=== PATIENT | female | born 1970 | race Two or more races ===

== ENCOUNTER 2016-10-22 09:39 | Day surgery (SDC) | payer OTHER ==
[~2016-10-22 09:39] MED LIST: CEFAZOLIN 1 G VIAL MC ONE; DEXAMETHASONE SOD PHOSPHATE 4 MG INJ IV ONE; IV LACTATED RINGERS SOLUTION 1,000 ML BAG IV ONE; LIDOCAINE HCL 1% 20 ML VIAL MC ONE; ONDANSETRON 4 MG/2 ML VIAL IV ONE; PROPOFOL 200 MG/20 ML BOTTLE IV ONE; SEVOFLURANE 250 ML BOTTLE IH ONE
[2016-10-22 10:24] LABS: CALCIUM 8.4 mg/dL (8.5-10.1); CREATININE 0.6 mg/dL (0.6-1.3); POTASSIUM 3.8 mmol/L (3.5-5.1)
[2016-10-22 10:27] LABS: *BILIRUBIN,URIN NEGATIVE (NEGATIVE); *BLOOD, URINE Trace-intact (NEGATIVE); *CLARITY,URINE CLEAR (CLEAR); *COLOR,URINE LIGHT YELLOW (YELLOW); *KETONES,URINE NEGATIVE (NEGATIVE); *PROTEIN,URINE NEGATIVE (NEGATIVE); *UROBILINOGEN,URINE 0.2 E.U./dl (NORMAL); LEUKOCYTE ESTERASE ,URINE TRACE (NEGATIVE); NITRITE, URINE NEGATIVE (NEGATIVE); UGLUCOSE NEGATIVE (NEGATIVE)
[2016-10-22 10:29] LABS: ALBUMIN 3.6 g/dL (3.4-5.0); BILIRUBIN,TOTAL 0.4 mg/dL (0.2-1.0); TOTAL PROTEIN, SERUM 7.8 g/dL (6.4-8.2)
[2016-10-22 10:33] LABS: BASOPHILS # (AUTO) 0.1 K/uL (0.0-8.0); EOSINOPHILS # (AUTO) 0.2 K/uL (0.0-0.7); EOSINOPHILS % (AUTO) 3.4 % (0.0-7.0); HEMATOCRIT 38.9 % (37-47); HEMOGLOBIN 13.5 G/DL (12.0-16.0); LYMPHOCYTES # (AUTO) 1.5 K/UL (0.8-4.8); LYMPHOCYTES % (AUTO) 26.8 % (20.5-51.5); MEAN CORPUSCULAR HEMOGLOBIN 29.3 UUG (27.0-31.0); MEAN CORPUSCULAR HGB CONC 35 g/dL (32.0-37.0); MEAN CORPUSCULAR VOLUME 84.5 FL (81.0-99.0); MONOCYTES # (AUTO) 0.4 K/UL (0.1-1.30); MONOCYTES % (AUTO) 7.3 % (0.0-11.0); NEUTROPHILS # (AUTO) 3.5 K/UL (1.8-8.9); NEUTROPHILS % (AUTO) 61.5 % (38.5-71.5); PLATELET COUNT (AUTO) 121 K/UL (150-450); RED BLOOD CELL COUNT(AUTO) 4.61 MIL/UL (4.2-5.4); RED CELL DISTRIBUTION WIDTH 13.3 % (11.5-14.5); WHITE BLOOD COUNT (AUTO) 5.7 K/UL (4.0-11.2)
[2016-10-22 10:33] LABS: BACTERIA,URINE FEW /HPF (NONE SEEN); RBC,URINE 0-3 /HPF (0-3); SQUAMOUS EPITHELIAL CELL,UR FEW /HPF (NONE SEEN)
[2016-10-22 10:57] LABS: *URINE HCG, QUAL NEGATIVE (NEGATIVE)
[2016-10-22] MEDS ORDERED: MORPHINE SULFATE PF 10 MG/10 ML AMPUL IV ONE (12:28)
[2016-10-22] MEDS ORDERED: BUPIVACAINE/EPI PF 0.25% 30 ML VIAL ONE (12:29)
[2016-10-22] MEDS ORDERED: MIDAZOLAM HCL 2 MG/2 ML VIAL ONE (12:35)
[2016-10-22] MEDS ORDERED: FENTANYL CITRATE 100 MCG/2 ML AMPUL ONE ×2 (12:35→13:38)
[2016-10-22] MEDS ORDERED: HYDROCODONE/APAP 5-325MG TABLET ONE (14:49)
== END 2016-10-22 15:30 | disposition home or self-care (01) ==
LOC: DS 09:39
PROVIDERS: ATTEND Orthopaedic Surgery
DX: M23.221 Derangement of posterior horn of medial meniscus due to old tear or injury, right knee (principal); S83.91XA Sprain of unspecified site of right knee, initial encounter; X58.XXXA Exposure to other specified factors, initial encounter; Y93.9 Activity, unspecified; Y92.89 Other specified places as the place of occurrence of the external cause; Y99.9 Unspecified external cause status; M22.41 Chondromalacia patellae, right knee; E66.9 Obesity, unspecified; D69.6 Thrombocytopenia, unspecified
CPT/HCPCS: 36415; 84703; 85025; 85730; A4663; J0690; J1100; J2250; J2274; J2405; J3010; J3490; J7120